=== PATIENT | female | born 1975 | race Caucasian/White ===

== ENCOUNTER → 2016-07-12 | Outpatient (CLI) | payer OTHER ==
[~2016-07-12] MED LIST: APIX5TAB2 PO; ASPI-875 PO; FURO20TA PO; FURO40TA PO; FURO40TA4 PO; LEVO125T6 PO; LOSA100T7 PO; LSRT50T PO; METO100T5 PO; POTA-51 PO; POTA10CA43 PO; POTA20TA15 PO; PROP20TA23 PO; SERT100T8
--- NOTE | 2016-07-14 10:02 | ECHOCARDIOGRAPHY REPORT ---
PROCEDURE PHYSICIAN: BECK ROBLEDO DATE OF PROCEDURE: 07/12/2016 TWO DIMENSIONAL ECHOCARDIOGRAM REPORT PRIMARY PHYSICIAN: [facility] OTHER PHYSICIAN: REFERRING PHYSICIAN: ORDERING PHYSICIAN: Dr. Robledo INDICATION FOR THE PROCEDURE: Cardiomyopathy. MEASUREMENTS DERIVED VALUES LV DIAMETER (LAX) NORMALS NORMALS Diastolic 6.4 (3.6-5.2) Eject. Fract. (60%+/-6%) Systolic (2.3-3.9) Diastolic Vol. % Shortening (0.22-0.42) Systolic Vol. Aortic Root 2.8 IVS THICKNESS Diastolic 0.9 (0.6-1.1) LVPW THICKNESS Diastolic 1.1 (0.6-1.1) LA DIAMETER Systolic 3.6 (2.1-3.7) DESCRIPTION: Two-dimensional echocardiography shows global left ventricular systolic function at the lower limit of normal. Left ventricular ejection fraction is approximately 50%. There is mild enlargement of the left ventricle. Aortic, mitral and tricuspid valve leaflets show good excursion. There is no significant pericardial effusion. Doppler imaging shows trivial to mild mitral and tricuspid regurgitation. Pulmonary artery systolic pressure is estimated to be within normal limits. CONCLUSIONS: 1. Mild to moderate cardiomegaly consisting of mild to moderate enlargement of the left ventricle. 2. Well preserved global left ventricular systolic function with an ejection fraction of approximately 50%. 3. Trivial to mild mitral and tricuspid regurgitation. 4. No evidence of significant valvular stenosis. 5. Pulmonary artery systolic pressure is estimated to be within normal limits. Job ID: [id number] Dictated Date: 07/13/2016 15:02:17 Managing Broker Date: 07/14/2016 09:58:38 / robert
== END ==
LOC: CARD 08:05
PROVIDERS: ATTEND Internal Medicine Cardiovascular Disease
DX: I42.0 Dilated cardiomyopathy (principal)
CPT/HCPCS: 93306

== ENCOUNTER → 2017-04-19 | Outpatient (CLI) | payer BC, OTHER | LOC: CARD 12:58 | PROVIDERS: ATTEND Internal Medicine Cardiovascular Disease | DX: I42.0 Dilated cardiomyopathy (principal); I11.0 Hypertensive heart disease with heart failure; E03.8 Other specified hypothyroidism; I51.7 Cardiomegaly; I48.0 Paroxysmal atrial fibrillation; E66.8 Other obesity; I34.0 Nonrheumatic mitral (valve) insufficiency | CPT/HCPCS: 93306 ==

== ENCOUNTER → 2017-08-23 | Outpatient (CLI) | payer BC ==
--- NOTE | 2017-08-23 19:24 | Diagnostic Imaging Report ---
INDICATION: Trauma, pain and bruising around the metatarsals. FINDINGS: Three views of the left foot show no fracture, dislocation, or other acute bony abnormality. There is some swelling over the dorsum of the foot. No focal mass is seen. There is no foreign body. IMPRESSION: Swelling. No fracture. Dictated by: Dictated on workstation # [id number]
== END ==
LOC: RAD 18:29
PROVIDERS: ATTEND Nurse Practitioner Family
DX: S90.32XA Contusion of left foot, initial encounter (principal)
CPT/HCPCS: 73630

== ENCOUNTER → 2018-02-20 | Outpatient (CLI) | payer BC ==
--- NOTE | 2018-02-20 13:35 | Diagnostic Imaging Report ---
INDICATION: Routine screening. COMPARISON: 06/03/2014 and 08/14/2013. TECHNIQUE: 2D and 3D bilateral screening mammography was performed with CAD. FINDINGS: Both breasts remain heterogeneously dense, limiting the sensitivity of mammography. Post biopsy changes in the upper outer left breast with a marker clip in place are noted. The previously noted rounded mass near this location is no longer present. No new mass or malignant appearing microcalcifications are seen. The axillae are unremarkable. IMPRESSION: No mammographic features suspicious for malignancy are identified. ACR BI-RADS Category 2: Benign findings. Result letter will be mailed to the patient. Note: At least 10% of breast cancer is not imaged by mammography. Dictated by: Dictated on workstation # [id number]
== END ==
LOC: RAD 09:05
PROVIDERS: ATTEND Nurse Practitioner Family
DX: Z12.31 Encounter for screening mammogram for malignant neoplasm of breast (principal)
CPT/HCPCS: 77067